=== PATIENT | male | born 1970 | race African-American/Black ===

== ENCOUNTER 2020-09-10 17:50 | Emergency (ER) | payer OTHER ==
--- NOTE | 2020-09-10 19:58 | RAD REPORT ---
EXAM DESCRIPTION: RAD - Chest Single View - 09/10/2020 7:52 pm CLINICAL HISTORY: CHEST PAIN Chest pain. COMPARISON: No comparisons FINDINGS: Portable technique limits examination quality. The lungs are grossly clear. The heart is normal in size. No displaced fractures. IMPRESSION: No acute intrathoracic process suspected.
[2020-09-10] MEDS ORDERED: METOPROLOL TAR 50 MG TAB ONE (20:04)
[2020-09-10] MEDS ORDERED: ASPIRIN 81 MG CHEWABLE TABLET ONE (20:05)
[2020-09-10 20:15] LABS: Absolute Lymphocytes (CBC) 3.6 K/uL (0.7-4.9); Basophils % 0.9 % (0-1.3); Hematocrit 41.8 % (39.6-49.0); Lymphocytes % 44.5 % (15.3-44.8); MPV 8.8 fL (7.6-11.3); RBC Red Blood Cell Count 4.72 M/uL (4.33-5.43)
[2020-09-10 20:18] LABS: Protime INR 1.03
[2020-09-10 20:33] LABS: ALT/SGPT 29 U/L (12-78); AST/SGOT 17 U/L (15-37); Albumin 3.8 g/dL (3.4-5.0); Alkaline Phosphatase 102 U/L (45-117); BUN Blood Urea Nitrogen 11 mg/dL (7-18); Bicarbonate 24 mmol/L (21-32); Bilirubin Direct < 0.1 mg/dL (0-0.2); Bilirubin Total 0.3 mg/dL (0.2-1.0); Glucose Level 114 mg/dL (74-106); Lipase 200 U/L (73-393); Magnesium 2.2 mg/dL (1.8-2.4); Potassium 3.9 mmol/L (3.5-5.1); Protein, Total 7.6 g/dL (6.4-8.2); Sodium Level 143 mmol/L (136-145); Troponin (Emerg Dept Use Only) < 0.02 ng/mL (0.0-0.045)
[2020-09-10 20:44] LABS: Blood Morphology Comment NOT SEEN (NOT SEEN); Platelet Estimate ADEQ
[2020-09-10 20:46] LABS: NT PRO-BNP < 5 pg/mL (<125)
--- NOTE | 2020-09-10 21:23 | RAD REPORT ---
EXAM DESCRIPTION: CT - Angio Aorta For Dissection - 09/10/2020 9:07 pm CLINICAL HISTORY: Chest pain radiating to the back. PE;Dissection COMPARISON: No comparisons TECHNIQUE: CT angiography of the aorta was performed with MIPs. All CT scans are performed using dose optimization technique as appropriate and may include automated exposure control or mA/KV adjustment according to patient size. FINDINGS: A left aortic arch is present with normal branching pattern of the great vessels.No acute aortic finding is seen such as aneurysm, penetrating ulcer or dissection. The celiac axis, SMA, TAYLOR and renal arteries are patent. No evidence of pulmonary embolism. The lungs are clear. The liver demonstrates no focal mass or biliary dilatation.The spleen, pancreas, adrenal glands are w ithin normal limits for arterial phase imaging.Stones are present in both kidneys without hydronephro sis. No bowel obstruction, free fluid or abscess.Significant stool is retained throughout the colon.No pat hologic enlarged lymphadenopathy identified. No fracture or worrisome bone lesion seen. IMPRESSION: No acute aortic finding is demonstrated. Bilateral nephrolithiasis without hydronephrosis.
--- NOTE | 2020-09-10 22:38 | EDPHYS ---
Physician Documentation [facility] Name: Philippe Hawkins Age: 50 yrs Sex: Male : 1970 Arrival Date: 09/10/2020 Time: 17:53 Bed 15 Private MD: ED Physician Brijesh Feliz HPI: 09/10 19:45 This 50 yrs old Black Male presents to ER via Ambulatory with complaints of Arm Pain, segundo Numbness Of Arm, Chest Pain. 19:45 The patient or guardian complains of pain, that is acute. The complaints affect the segundo left tricep. Context: The problem was sustained at home, at work. Onset: The symptoms/episode began/occurred 2 day(s) ago. Treatment prior to arrival includes: no previous treatment. Modifying factors: The symptoms are alleviated by nothing. the symptoms are aggravated by nothing. Associated signs and symptoms: The patient has no apparent associated signs or symptoms. Severity of symptoms: At their worst the symptoms were mild, moderate, in the emergency department the symptoms have improved, mildly. The patient has not experienced similar symptoms in the past. Historical: - Allergies: 18:06 No Known Allergies; ca1 - Home Meds: 18:06 None [Active]; ca1 - PMHx: 18:06 Hypertension; ca1 - PSHx: 18:06 None; ca1 - Immunization history:: Adult Immunizations up to date. - Social history:: Smoking status: Patient reports the use of cigarette tobacco products, denies chronic smoking, but will smoke occasionally. - Family history:: not pertinent. ROS: 19:45 Constitutional: Negative for fever, chills, and weight loss, Eyes: Negative for injury, segundo pain, redness, and discharge, ENT: Negative for injury, pain, and discharge, Neck: Negative for injury, pain, and swelling, Respiratory: Negative for shortness of breath, cough, wheezing, and pleuritic chest pain, Abdomen/GI: Negative for abdominal pain, nausea, vomiting, diarrhea, and constipation, Back: Negative for injury and pain, : Negative for injury, bleeding, discharge, and swelling, MS/Extremity: Negative for injury and deformity, Skin: Negative for injury, rash, and discoloration, Neuro: Negative for headache, weakness, numbness, tingling, and seizure, Psych: Negative for depression, anxiety, suicide ideation, homicidal ideation, and hallucinations, Allergy/Immunology: Negative for hives, rash, and allergies, Endocrine: Negative for neck swelling, polydipsia, polyuria, polyphagia, and marked weight changes, Hematologic/Lymphatic: Negative for swollen nodes, abnormal bleeding, and unusual bruising. 19:45 Cardiovascular: Positive for chest pain. Exam: 19:45 Constitutional: This is a well developed, well nourished patient who is awake, alert, segundo and in no acute distress. Head/Face: Normocephalic, atraumatic. Eyes: Pupils equal round and reactive to light, extra-ocular motions intact. Lids and lashes normal. Conjunctiva and sclera are non-icteric and not injected. Cornea within normal limits. Periorbital areas with no swelling, redness, or edema. ENT: Nares patent. No nasal discharge, no septal abnormalities noted. Tympanic membranes are normal and external auditory canals are clear. Oropharynx with no redness, swelling, or masses, exudates, or evidence of obstruction, uvula midline. Mucous membranes moist. Neck: Trachea midline, no thyromegaly or masses palpated, and no cervical lymphadenopathy. Supple, full range of motion without nuchal rigidity, or vertebral point tenderness. No Meningismus. Chest/axilla: Normal chest wall appearance and motion. Nontender with no deformity. No lesions are appreciated. Cardiovascular: Regular rate and rhythm with a normal S1 and S2. No gallops, murmurs, or rubs. Normal PMI, no JVD. No pulse deficits. Respiratory: Lungs have equal breath sounds bilaterally, clear to auscultation and percussion. No rales, rhonchi or wheezes noted. No increased work of breathing, no retractions or nasal flaring. Abdomen/GI: Soft, non-tender, with normal bowel sounds. No distension or tympany. No guarding or rebound. No evidence of tenderness throughout. Back: No spinal tenderness. No costovertebral tenderness. Full range of motion. Skin: Warm, dry with normal turgor. Normal color with no rashes, no lesions, and no evidence of cellulitis. MS/ Extremity: Pulses equal, no cyanosis. Neurovascular intact. Full, normal range of motion. Neuro: Awake and alert, GCS 15, oriented to person, place, time, and situation. Cranial nerves II-XII grossly intact. Motor strength 5/5 in all extremities. Sensory grossly intact. Cerebellar exam normal. Normal gait. Psych: Awake, alert, with orientation to person, place and time. Behavior, mood, and affect are within normal limits. 19:49 ECG was reviewed by the Attending Physician. [facility] Vital Signs: 18:04 BP 145 / 92; Pulse 85; Resp 16 S; Temp 98.1(TE); Pulse Ox 100% on R/A; Weight 102.06 kg ca1 (R); Height 5 ft. 7 in. (170.18 cm) (R); Pain 7/10; 20:00 BP 126 / 88; Pulse 75; Resp 20; Pulse Ox 97% ; Pain 4/10; fu 20:45 BP 126 / 84; Pulse 68; Resp 19; Pulse Ox 97% on R/A; Pain 0/10; fu 23:00 BP 100 / 60; Pulse 63; Resp 18; Pulse Ox 97% ; Pain 0/10; fu 18:04 Body Mass Index 35.24 (102.06 kg, 170.18 cm) ca1 MDM: 19:20 Patient medically screened. [facility] 19:47 Data reviewed: vital signs, nurses notes, lab test result(s), EKG, radiologic studies, [facility] plain films. Data interpreted: potline monitor: rate is 85 beats/min, rhythm is regular, Pulse oximetry: on room air. Test interpretation: by ED physician or midlevel provider: ECG, plain radiologic studies. Counseling: I had a detailed discussion with the patient and/or guardian regarding: the historical points, exam findings, and any diagnostic results supporting the discharge/admit diagnosis, lab results. 09/10 19:42 Order name: Basic Metabolic Panel [facility] 09/10 19:42 Order name: CBC with Diff [facility] 09/10 19:42 Order name: LFT's [facility] 09/10 19:42 Order name: Magnesium [facility] 09/10 19:42 Order name: NT PRO-BNP [facility] 09/10 19:42 Order name: PT-INR; Complete Time: 20:26 [facility] 09/10 19:42 Order name: Troponin (emerg Dept Use Only) [facility] 09/10 19:42 Order name: Lipase [facility] 09/10 19:43 Order name: Basic Metabolic Panel; Complete Time: 21:20 [facility] 09/10 19:43 Order name: CBC with Automated Diff; Complete Time: 21:20 [facility] 09/10 19:43 Order name: Liver (Hepatic) Function; Complete Time: 21:20 [facility] 09/10 19:43 Order name: Magnesium; Complete Time: 21:20 [facility] 09/10 19:43 Order name: NT PRO-BNP; Complete Time: 21:20 [facility] 09/10 18:07 Order name: EKG; Complete Time: 18:07 [facility] 09/10 18:07 Order name: EKG - Nurse/Tech; Complete Time: 18:07 [facility] 09/10 19:42 Order name: XRAY Chest (1 view); Complete Time: 20:26 [facility] 09/10 19:42 Order name: Cardiac monitoring; Complete Time: 20:02 [facility] 09/10 19:42 Order name: IV Saline Lock; Complete Time: 20: [facility] 09/10 19:42 Order name: Labs collected and sent; Complete Time: 20: [facility] 09/10 19:42 Order name: O2 Per Protocol; Complete Time: 20:02 [facility] 09/10 19:44 Order name: Troponin (Emerg Dept Use Only); Complete Time: 21:20 [facility] 09/10 19:44 Order name: Lipase; Complete Time: 21:20 [facility] 09/10 20:11 Order name: D-Dimer; Complete Time: 20:26 [facility] 09/10 20:17 Order name: Manual Differential; Complete Time: 21:20 [facility] 09/10 20:25 Order name: CT Aorta for Dissection: pe and dissection; Complete Time: 22:29 [facility] 09/10 20:25 Order name: Troponin (emerg Dept Use Only): 945 pm; Complete Time: 22:29 [facility] 09/10 20:55 Order name: Slides for Pathologist Review [facility] 09/10 19:42 Order name: O2 Sat Monitoring; Complete Time: 20:02 [facility] EC:49 Rate is 82 beats/min. Rhythm is regular. QRS [place] is Normal. IA interval is normal. QRS segundo interval is normal. QT interval is normal. T waves are Normal. No ST changes noted. Clinical impression: Normal ECG and No evidence of ischemia. Interpreted by me. Reviewed by me. Administered Medications: 19:51 Drug: Aspirin Chewable Tablet 324 mg Route: PO; fu 20:52 Follow up: Response: No adverse reaction fu 19:52 Drug: Lopressor (metoprolol TARTRATE) 50 mg Route: PO; fu 20:52 Follow up: Response: No adverse reaction fu Disposition: 09/10/20 22:37 Discharged to Home. Impression: Chest pain, unspecified, Essential (primary) hypertension. - Condition is Stable. - Discharge Instructions: Nonspecific Chest Pain, Hypertension, Nonspecific Chest Pain, [id number], Hypertension, [id number]-ux-[id number], How to Take Your Blood Pressure, [place]-fz-Dnky, Aspirin and Your Heart, Managing Your Hypertension. - Prescriptions for Toprol XL 50 mg Oral Tablet - take 1 tablet by ORAL route once daily; 20 tablet. - Medication Reconciliation Form, Thank You Letter, Antibiotic Education, Prescription Opioid Use form. - Follow up: Private Physician; When: 2 - 3 days; Reason: Recheck today's complaints, Continuance of care, Re-evaluation by your physician. Follow up: Oscar Pagan MD; When: 1 - 2 days; Reason: Recheck today's complaints, Re-evaluation by your physician. - Problem is new. - Symptoms have improved. Signatures: Dispatcher [employer] [facility] Brijesh Feliz MD MD cha Umadhay, Felix, RN RN fu Acob, Cheryl, RN RN ca1 Corrections: (The following items were deleted from the chart) 20:11 19:44 D-DIMER+COAG.LAB.BRZ ordered. [facility] 23:19 22:37 09/10/2020 22:37 Discharged to Home. Impression: Chest pain, unspecified; fu Essential (primary) hypertension. Condition is Stable. Forms are Medication Reconciliation Form, Thank You Letter, Antibiotic Education, Prescription Opioid Use. Follow up: Private Physician; When: 2 - 3 days; Reason: Recheck today's complaints, Continuance of care, Re-evaluation by your physician. Follow up: Oscar Pagan; When: 1 - 2 days; Reason: Recheck today's complaints, Re-evaluation by your physician. Problem is new. Symptoms have improved. segundo
--- NOTE | 2020-09-10 22:38 | ER ---
Nurse's Notes [facility] Name: Philippe Hawkins Age: 50 yrs Sex: Male : 1970 Arrival Date: 09/10/2020 Time: 17:53 Bed 15 Private MD: Diagnosis: Chest pain, unspecified;Essential (primary) hypertension Presentation: 09/10 18:04 Chief complaint: Patient states: Chest pain x 3 days, radiating to the L arm. Reports ca1 numbness and tingling of the L arm. Denies HX of heart conditions. Coronavirus screen: Client denies travel out of the [place] in the last 14 days. At this time, the client does not indicate any symptoms associated with coronavirus-19. Ebola Screen: Patient negative for fever greater than or equal to 101.5 degrees Fahrenheit, and additional compatible Ebola Virus Disease symptoms Patient denies exposure to infectious person. Patient denies travel to an Ebola-affected area in the 21 days before illness onset. No symptoms or risks identified at this time. Initial Sepsis Screen: Does the patient meet any 2 criteria? No. Patient's initial sepsis screen is negative. Does the patient have a suspected source of infection? No. Patient's initial sepsis screen is negative. Risk Assessment: Do you want to hurt yourself or someone else? Patient reports no desire to harm self or others. Onset of symptoms was September 07, 2020. 18:04 Method Of Arrival: Ambulatory ca1 18:04 Acuity: FRENCH 3 ca1 Historical: - Allergies: 18:06 No Known Allergies; ca1 - Home Meds: 18:06 None [Active]; ca1 - PMHx: 18:06 Hypertension; ca1 - PSHx: 18:06 None; ca1 - Immunization history:: Adult Immunizations up to date. - Social history:: Smoking status: Patient reports the use of cigarette tobacco products, denies chronic smoking, but will smoke occasionally. - Family history:: not pertinent. Screenin:00 Abuse screen: Denies threats or abuse. Nutritional screening: No deficits noted. fu Tuberculosis screening: No symptoms or risk factors identified. Fall Risk None identified. Assessment: 19:30 General: Appears in no apparent distress. Behavior is calm, cooperative, appropriate fu for age, Denies fever, feeling ill, fatigue, chills. Pain: Complains of pain in chest Pain radiates to left tricep Pain currently is 4 out of 10 on a pain scale. Quality of pain is described as radiating, Pain began 2-3 days ago. Neuro: Level of Consciousness is awake, alert, obeys commands, Oriented to person, place, time, situation, Hogshead Stripper are equal bilaterally Moves all extremities. Gait is steady, Speech is normal, Facial symmetry appears normal. Cardiovascular: Reports chest pain, Denies diaphoresis, nausea, vomiting. Respiratory: Airway is patent Respiratory effort is even, unlabored, Respiratory pattern is regular. GI: No signs and/or symptoms were reported involving the gastrointestinal system. : No signs and/or symptoms were reported regarding the genitourinary system. EENT: No signs and/or symptoms were reported regarding the EENT system. Vital Signs: 18:04 BP 145 / 92; Pulse 85; Resp 16 S; Temp 98.1(TE); Pulse Ox 100% on R/A; Weight 102.06 kg ca1 (R); Height 5 ft. 7 in. (170.18 cm) (R); Pain 7/10; 20:00 BP 126 / 88; Pulse 75; Resp 20; Pulse Ox 97% ; Pain 4/10; fu 20:45 BP 126 / 84; Pulse 68; Resp 19; Pulse Ox 97% on R/A; Pain 0/10; fu 23:00 BP 100 / 60; Pulse 63; Resp 18; Pulse Ox 97% ; Pain 0/10; fu 18:04 Body Mass Index 35.24 (102.06 kg, 170.18 cm) ca1 ED Course: 17:53 Patient arrived in ED. ag5 18:05 Triage completed. ca1 18:06 Arm band placed on right wrist. ca1 19:20 Brijesh Feliz MD is Attending Physician. [facility] 19:32 Feliz Lal, ADRIANA is Primary Nurse. fu 19:52 XRAY Chest (1 view) In Process Unspecified. EDMS 20:00 bistro attendant on. Pulse ox on. NIBP on. fu 20:00 Inserted saline lock: 20 gauge in right forearm, using aseptic technique. Blood fu collected. 20:02 Lipase Sent. fu 20:02 Troponin (Emerg Dept Use Only) Sent. fu 20:02 NT PRO-BNP Sent. fu 20:02 Liver (Hepatic) Function Sent. fu 20:02 Magnesium Sent. fu 20:02 CBC with Automated Diff Sent. fu 20:02 Basic Metabolic Panel Sent. fu 20:02 Lipase Sent. fu 20:02 Basic Metabolic Panel Sent. fu 20:03 CBC with Diff Sent. fu 20:03 LFT's Sent. fu 20:03 Magnesium Sent. fu 20:03 NT PRO-BNP Sent. fu 20:03 PT-INR Sent. fu 20:03 Troponin (emerg Dept Use Only) Sent. fu 21:08 CT Aorta for Dissection: pe and dissection In Process Unspecified. EDMS 21:17 Troponin (emerg Dept Use Only): 945 pm Sent. fu 22:30 Patient maintains SpO2 saturation greater than 95% on room air. fu 22:36 Oscar Pagan MD is Referral Physician. [facility] 23:00 Patient has correct armband on for positive identification. Bed in low position. Call fu light in reach. Side rails up X 1. 23:14 No provider procedures requiring assistance completed. fu 23:14 IV discontinued, bleeding controlled, Pressure dressing applied. fu Administered Medications: 19:51 Drug: Aspirin Chewable Tablet 324 mg Route: PO; fu 20:52 Follow up: Response: No adverse reaction fu 19:52 Drug: Lopressor (metoprolol TARTRATE) 50 mg Route: PO; fu 20:52 Follow up: Response: No adverse reaction fu Outcome: 22:37 Discharge ordered by . [facility] 23:17 Discharged to home ambulatory. fu 23:17 Condition: good 23:17 Discharge instructions given to patient, Instructed on discharge instructions, follow up and referral plans. Demonstrated understanding of instructions, follow-up care, Prescriptions given X 2. 23:19 Patient left the ED. fu Signatures: Dispatcher [employer] [facility] Brijesh Feliz MD MD cha Umadhay, Felix, RN RN fu Acob, Cheryl, RN RN [facility] Aj Dorsey ag5 Corrections: (The following items were deleted from the chart) 20:11 20:02 D-DIMER+COAG.LAB.BRZ drawn and sent. fu EDMS
[2020-09-11 00:56] VITALS: TEMP 98.1
[2020-09-11 00:57] VITALS: O2SAT 97
[2020-09-11 01:00] VITALS: BP 100/60
--- NOTE | 2020-09-11 05:37 | EKG ---
Test Date: 2020-09-10 Test Time: 18:02:00 Rfid Strategist: RUKHSANA MEASUREMENT RESULTS: Intervals: Rate: 82 AK: 166 QRSD: 88 QT: 346 QTc: 404 Sargeant: P: 58 AK: 166 QRS: 43 T: 29 INTERPRETIVE STATEMENTS: Normal sinus rhythm Normal ECG No previous ECG available for comparison Electronically Signed On 09-11-20 05:35:21 [employer] by Oscar Pagan
== END 2020-09-10 23:19 | disposition home or self-care (01) ==
LOC: ER 17:50
DX: I10 Essential (primary) hypertension (principal); F17.210 Nicotine dependence, cigarettes, uncomplicated
CPT/HCPCS: 85025; 80048; 36415; 83735; 85610; 85379; 80076; 84484 ×2; 83690; 83880; 71275; 74175; 71045; Q9967; 93005; 99285